=== PATIENT | female | born 1965 | race Caucasian/White ===

== ENCOUNTER 2023-05-16 17:14 | Emergency (ER) | payer SELFPAY ==
[2023-05-16] MEDS ORDERED: THIAMINE 200 MG/2 ML INJ ONE (18:00)
[2023-05-16] MEDS ORDERED: NA CHLORIDE 0.9% 1,000 ML ONE (18:00)
[2023-05-16] MEDS ORDERED: FOLIC ACID 5 MG/ML VIAL ONE (18:01)
[2023-05-16] MEDS ORDERED: MULTIVITAMINS 10 ML VIAL (INJ) IV ONE (18:03)
[2023-05-16 18:08] LABS: Absolute Lymphocytes (CBC) 0.5 K/uL (0.7-4.9); Hematocrit 43.3 % (36.0-45.0); MCV 105.4 fL (80-100); MPV 7.5 fL (7.6-11.3); Platelets 163 thou/uL (152-406)
[2023-05-16 18:15] LABS: Protime INR 1.02
[2023-05-16 18:24] LABS: Barbiturates NEGATIVE (NEGATIVE); Benzodiazepines NEGATIVE (NEGATIVE); Cocaine NEGATIVE (NEGATIVE); METHAMPHETAM NEGATIVE (NEGATIVE); Methadone NEGATIVE (NEGATIVE); Opiates NEGATIVE (NEGATIVE); Phencyclidine NEGATIVE (NEGATIVE); THC Cannibis POSITIVE (NEGATIVE)
[2023-05-16 18:26] LABS: ALT/SGPT 41 U/L (13-56); AST/SGOT 37 U/L (15-37); Alkaline Phosphatase 108 U/L (45-117); BUN Blood Urea Nitrogen 5 mg/dL (7-18); Bicarbonate 22 mEq/L (21-32); Bilirubin Direct 0.3 mg/dL (0-0.2); Bilirubin Indirect, Calculated 0.4 mg/dL (0.2-0.8); Bilirubin Total 0.7 mg/dL (0.2-1.0); Glomerular Filtration Rate 75 ml/min (=/>90); Glucose Level 130 mg/dL (74-106); Protein, Total 6.9 g/dL (6.4-8.2); Sodium Level 134 mEq/L (136-145)
[2023-05-16 18:28] LABS: Potassium 2.1 mEq/L (3.5-5.1)
--- NOTE | 2023-05-16 18:40 | RAD REPORT ---
EXAM DESCRIPTION: CT - [id number] - 05/16/2023 5:46 pm CLINICAL HISTORY: CONFUSED COMPARISON: No comparisons TECHNIQUE: Axial thin cut noncontrast CT images of the head were obtained. Axial thin cut noncontrast CT images of the cervical spine were obtained. Multiplanar reformatted images were generated and reviewed. All CT scans are performed using dose optimization technique as appropriate and may include automated exposure control or mA/KV adjustment according to patient size. FINDINGS: CT HEAD WITHOUT CONTRAST: No acute hemorrhage, hydrocephalus or extra-axial collection is identified.No areas of brain edema or midline shift. The paranasal sinuses and mastoids are clear.Left frontotemporal craniotomy is present. Encephalomala debbie along the left basal frontal region. CT CERVICAL SPINE WITHOUT CONTRAST: No fracture or subluxation.No prevertebral soft tissues swelling is identified. Mild degenerative ch anges with disc height loss at C6-7. Incidentally noted relatively hyperdense tongue base mass left of midline measuring 1.7 x 1.5 cm, wit h mucosal contour irregularity suggesting surface ulceration. IMPRESSION: No acute traumatic intracranial or cervical spine findings. Incidentally noted relatively hyperdense tongue base 1.7 cm mass, with possible overlying ulceration. This raises concern for malignancy. Consider ENT referral for additional evaluation. If additional i maging is warranted, this can be further evaluated by contrast-enhanced CT or MRI of the neck soft ti ssues. Sequelae of remote resection along the left basal frontal region.
[2023-05-16] MEDS ORDERED: KCL 20 MEQ/100 mL IVPB 100 ML IV ONE ×2 (18:53→21:59)
[2023-05-16] MEDS ORDERED: NA CHLORIDE 0.9% 500 ML ONE ×4 (18:53→23:35)
[2023-05-16] MEDS ORDERED: POTASSIUM 25 MEQ EFFERV TAB ONE (18:53)
[2023-05-16] MEDS ORDERED: ONDANSETRON 4 MG/2 ML VIAL ONE (21:12)
--- NOTE | 2023-05-16 22:49 | EDPHYS ---
Physician Documentation [facility] Name: Maxine Delgado Age: 58 yrs Sex: Female : 1965 Arrival Date: 05/16/2023 Time: 17:14 Bed 8 Private MD: ED Physician Spencer Talley HPI: 05/16 17:34 This 58 yrs old Female presents to ER via EMS with complaints of Altered Mental Status. snw 17:34 The patient presents with trouble concentrating. Patient's baseline: Neuro: alert and snw fully oriented, Motor: no deficits, Ambulation: walks without assistance. It is unknown whether or not the patient has had similar symptoms in the past. lives in [place]. Pt was found "sleeping on the floor of an apartment complex". 17:35 Onset: The symptoms/episode began/occurred acutely. Pt states she flew down yesterday snw from [place] to her Sister's here in to surprise her Mom for her birthday. Admits to ETOH abuse. States she had a seizure about 2 years ago. Takes MVI and Lisinopril 20mg po daily. Historical: - Allergies: 17:19 No Known Allergies; tm6 - PMHx: 17:19 Seizure; tm6 - Immunization history:: Adult Immunizations up to date. - Social history:: Smoking status: Patient reports the use of cigarette tobacco products, smokes one pack cigarettes per day. Patient uses alcohol, on a daily basis. ROS: 17:30 Constitutional: Negative for fever, chills, and weight loss, Eyes: Negative for injury, snw pain, redness, and discharge, ENT: Negative for injury, pain, and discharge, Neck: Negative for injury, pain, and swelling, Cardiovascular: Negative for chest pain, palpitations, and edema, Respiratory: Negative for shortness of breath, cough, wheezing, and pleuritic chest pain, Abdomen/GI: Negative for abdominal pain, nausea, vomiting, diarrhea, and constipation, Back: Negative for injury and pain, : Negative for injury, bleeding, discharge, and swelling, MS/Extremity: Negative for injury and deformity, Skin: Negative for injury, rash, and discoloration, 17:30 Neuro: Positive for altered mental status, "can't think straight", 17:30 Psych: Positive for alcohol dependence, Exam: 17:30 Head/Face: Normocephalic, atraumatic. Eyes: Pupils equal round and reactive to light, snw extra-ocular motions intact. Lids and lashes normal. Conjunctiva and sclera are non-icteric and not injected. Cornea within normal limits. Periorbital areas with no swelling, redness, or edema. ENT: Nares patent. No nasal discharge, no septal abnormalities noted. Tympanic membranes are normal and external auditory canals are clear. Oropharynx with no redness, swelling, or masses, exudates, or evidence of obstruction, uvula midline. Mucous membranes moist. Neck: Trachea midline, no thyromegaly or masses palpated, and no cervical lymphadenopathy. Supple, full range of motion without nuchal rigidity, or vertebral point tenderness. No Meningismus. Chest/axilla: Normal chest wall appearance and motion. Nontender with no deformity. No lesions are appreciated. Cardiovascular: Regular rate and rhythm with a normal S1 and S2. No gallops, murmurs, or rubs. Normal PMI, no JVD. No pulse deficits. Respiratory: Lungs have equal breath sounds bilaterally, clear to auscultation and percussion. No rales, rhonchi or wheezes noted. No increased work of breathing, no retractions or nasal flaring. Abdomen/GI: Soft, non-tender, with normal bowel sounds. No distension or tympany. No guarding or rebound. No evidence of tenderness throughout. Back: No spinal tenderness. No costovertebral tenderness. Full range of motion. 17:30 MS/ Extremity: Pulses equal, no cyanosis. Neurovascular intact. Full, normal range of motion. 17:30 Constitutional: The patient appears alert, anxious, restless, 17:30 Skin: Appearance: normal except for affected area, injury, abrasion(s), small abrasion noted, of the right arm, 17:30 Neuro: Orientation: pt agitated, gregarious, admits to ETOH, 17:30 Neuro: Mentation: lucid, Memory: is normal, Motor: is normal, Gait: not tested. seizure activity, is not displayed by the patient, 17:30 Psych: Behavior/mood is anxious, aggressive, Affect is animated, Oriented to person, place, time, Judgement / Insight is impaired. Vital Signs: 17:17 BP 148 / 93; Pulse 89; Resp 13; Temp 98.1(TE); Pulse Ox 95% on R/A; Weight 58.5 kg; tm6 Height 5 ft. 1 in. ; Pain 0/10; 17:23 BP 148 / 93; Pulse 89; Resp 13; Temp 98.1(TE); Pulse Ox 95% on R/A; tm6 18:28 BP 150 / 80; Pulse 81; Resp 17; Pulse Ox 98% on R/A; tm6 19:02 BP 148 / 80; Pulse 88; Resp 18; Pulse Ox 97% on R/A; tm6 19:30 BP 156 / 87; Pulse 92; Resp 17 S; Pulse Ox 95% on R/A; ha1 20:30 BP 146 / 92; Pulse 98; Resp 17 S; Pulse Ox 96% on R/A; ha1 21:10 BP 145 / 81; Pulse 88; Resp 17 S; Pulse Ox 96% on R/A; ha1 21:30 BP 140 / 75; Pulse 91; Resp 15 S; Pulse Ox 96% on R/A; ha1 22:20 BP 133 / 75; Pulse 76; Resp 15 S; Pulse Ox 94% on R/A; ha1 23:00 BP 122 / 68; Pulse 90; Resp 18 S; Pulse Ox 95% on R/A; ha1 17:17 Body Mass Index 24.37 (58.50 kg, 154.94 cm) tm6 17:17 Pain Scale: Adult tm6 MDM: 17:18 Patient medically screened. snw 20:29 Differential Diagnosis: electrolyte abnormality, alcohol intoxication, seizure, UTI. snw Data reviewed: vital signs, nurses notes, lab test result(s), radiologic studies, discussed mass to base of tongue and need for follow up. I considered the following discharge prescriptions or medication management in the emergency department Medications were administered in the Emergency Department. See MAR. Historians other than the Patient: EMS: [facility]. Care significantly affected by the following chronic conditions: ETOH abuse, HTN. Counseling: I had a detailed discussion with the patient and/or guardian regarding the historical points, exam findings, and any diagnostic results supporting the discharge/admit diagnosis, the presence of at least one elevated blood pressure reading (>120/80) during this emergency department visit, lab results, radiology results, the need for outpatient follow up, for definitive care, smoking cessation. Response to treatment: the patient's symptoms have mildly improved after treatment, the patient's symptoms have markedly improved after treatment. Awaiting: repeat potassium level. Special discussion: I have referred the patient to see his PCP for further evaluation of high blood pressure. Based on the history and exam findings, there is no indication for further emergent testing or inpatient evaluation. I discussed with the patient/guardian the need to see the primary care provider for further evaluation of the symptoms. 05/16 17:24 Order name: Acetaminophen; Complete Time: 18:35 snw 05/16 17:24 Order name: Basic Metabolic Panel; Complete Time: 18:35 snw 05/16 17:24 Order name: CBC with Diff; Complete Time: 18:35 snw 05/16 17:24 Order name: ETOH Level; Complete Time: 18:35 snw 05/16 17:24 Order name: Hepatic Function; Complete Time: 18:35 snw 05/16 17:24 Order name: PT-INR; Complete Time: 18:35 snw 05/16 17:24 Order name: Ptt, Activated; Complete Time: 18:35 snw 05/16 17:24 Order name: Salicylate; Complete Time: 18:35 snw 05/16 17:24 Order name: Urine Drug Screen; Complete Time: 18:35 snw 05/16 20:18 Order name: Potassium; Complete Time: 21:27 snw 05/16 17:24 Order name: CT Head C Spine; Complete Time: 18:44 snw 05/16 17:24 Order name: EKG; Complete Time: 17:25 snw 05/16 17:24 Order name: EKG - Nurse/Tech; Complete Time: 18:27 snw 05/16 17:24 Order name: IV Saline Lock; Complete Time: 17:26 snw 05/16 17:24 Order name: Labs collected and sent; Complete Time: 18:27 snw 05/16 17:24 Order name: Suicide Screening (Fulda); Complete Time: 18:27 snw 05/16 17:24 Order name: FSBS; Complete Time: 18:32 snw EC:20 Rate is 70 beats/min. Rhythm is irregular. QRS [place] is Normal. NC interval is normal. Q snw waves are Present in leads aVL, aVR, V1. Clinical impression: NSR w/ Non-specific ST/T Changes. Administered Medications: 18:27 Drug: Banana Bag - (Multivitamin IV 1 amp, NS 0.9% IV 1000 ml, Thiamine IV 100 mg, tm6 foLIC Acid IVPB 1 mg) IV at 200 ml/hr once Route: IV; Rate: 200 ml/hr; Site: right antecubital; 23:03 Follow up: Response: No adverse reaction; IV Status: Completed infusion; IV Intake: ha1 1000ml 18:27 Drug: Boostrix Tdap IM 0.5 ml IM once; as a single dose Route: IM; Site: right deltoid; tm6 20:57 Follow up: Response: No adverse reaction [facility] 18:55 Drug: Potassium PO Effervescent Tablet 50 mEq PO once; dissolve in 4 ounces of water or tm6 juice Route: PO; 20:57 Follow up: Response: No adverse reaction [facility] 19:02 Drug: Potassium Chloride IV 20 mEq IV at calculated rate once; administer over 1-2 tm6 hours Route: IV; Rate: calculated rate; Site: left forearm; 21:30 Follow up: Response: No adverse reaction; IV Status: Completed infusion; IV Intake: ha1 100ml 21:00 Drug: Ondansetron IVP 4 mg IVP once; over 2 minutes Route: IVP; Site: left forearm; ha1 21:30 Follow up: Response: No adverse reaction; Nausea is decreased 1 21:58 Drug: Potassium Chloride IV 20 mEq IV at calculated rate once; administer over 1-2 ha1 hours Route: IV; Rate: calculated rate; Site: right antecubital; 23:53 Follow up: Response: No adverse reaction; IV Status: Completed infusion; IV Intake: ha1 100ml Disposition Summary: 05/16/23 22:48 Discharge Ordered Notes: Location: Home snw Condition: Stable snw Diagnosis - Alcohol use, unspecified snw - Localized swelling, mass and lump, neck - base of tongue snw - Hypokalemia snw Followup: snw - With: Emergency Department - When: As needed - Reason: Worsening of condition Followup: snw - With: Private Physician - When: 2 - 3 days - Reason: Recheck today's complaints, Continuance of care, Re-evaluation by your physician Discharge Instructions: - Discharge Summary Sheet snw - Potassium Content of Foods snw - Alcohol Abuse and Nutrition snw - Hypokalemia snw Forms: - Medication Reconciliation Form snw - Thank You Letter snw - Antibiotic Education snw - Prescription Opioid Use snw - Patient Portal Instructions snw - Leadership Thank You Letter snw Addendum: 05/25/2023 09:35 I reviewed the patient's care provided by the Advanced Practice Provider and agree with millie king the diagnosis and treatment plan. Signatures: Dispatcher [employer] EDMN Estella Campo, NIP WRAPPER-C NIP WRAPPER-Csnw Yolis Aquino, RN RN ha1 IheonunekwuSpencer Tawney, RN RN tm6 [facility] MaryvaleAnastasiya RN [id number]
--- NOTE | 2023-05-16 22:49 | ER ---
Nurse's Notes [facility] Name: Maxine Delgado Age: 58 yrs Sex: Female : 1965 Arrival Date: 05/16/2023 Time: 17:14 Bed 8 Private MD: Diagnosis: Alcohol use, unspecified;Localized swelling, mass and lump, neck-base of tongue;Hypokalemia Presentation: 05/16 17:17 Chief complaint: EMS states: patient found face down on the ground by bystander, [facility]. tm6 Coronavirus screen: Client denies travel out of the [place] in the last 14 days. Ebola Screen: Patient negative for fever greater than or equal to 101.5 degrees Fahrenheit, and additional compatible Ebola Virus Disease symptoms Patient denies exposure to infectious person. Patient denies travel to an Ebola-affected area in the 21 days before illness onset. No symptoms or risks identified at this time. Initial Sepsis Screen: Does the patient meet any 2 criteria? No. Patient's initial sepsis screen is negative. Does the patient have a suspected source of infection? No. Patient's initial sepsis screen is negative. Risk Assessment: Do you want to hurt yourself or someone else? Patient reports no desire to harm self or others. Onset of symptoms was May 16, 2023. 17:17 Method Of Arrival: EMS: [facility] tm6 17:17 Acuity: LOU 3 tm6 Triage Assessment: 17:19 General: Appears distressed, Behavior is cooperative, anxious, crying, restless. Pain: tm6 Denies pain. EENT: No signs and/or symptoms were reported regarding the EENT system. Neuro: Level of Consciousness is awake, alert, obeys commands, Oriented to person, place, time, situation. Cardiovascular: Capillary refill < 3 seconds Patient's skin is warm and dry. Rhythm is sinus rhythm. Respiratory: Airway is patent Respiratory effort is even, unlabored, Respiratory pattern is regular, symmetrical. GI: Abdomen is flat, non-distended. : No signs and/or symptoms were reported regarding the genitourinary system. Derm: No signs and/or symptoms reported regarding the dermatologic system. Musculoskeletal: No signs and/or symptoms reported regarding the musculoskeletal system. Historical: - Allergies: 17:19 No Known Allergies; tm6 - PMHx: 17:19 Seizure; tm6 - Immunization history:: Adult Immunizations up to date. - Social history:: Smoking status: Patient reports the use of cigarette tobacco products, smokes one pack cigarettes per day. Patient uses alcohol, on a daily basis. Screenin:[address] [facility] ED Fall Risk Assessment (Adult) History of falling in the last 3 months, tm6 including since admission Yes- physiologic fall (2 pts) Confusion or Disorientation Yes (5 pts) Intoxicated or Sedated Yes (3 pts) Impaired Gait No (0 pts) Mobility Assist Device Used No (0 pt) Altered Elimination No (0 pt) Score/Fall Risk Level 3 or more points = High Risk. Abuse screen: Denies threats or abuse. Denies injuries from another. Nutritional screening: No deficits noted. Tuberculosis screening: No symptoms or risk factors identified. Assessment: 17:21 Reassessment: see triage assessment. tm6 17:23 Neuro: Oriented to forgetful. tm6 19:25 General: Appears comfortable, Behavior is calm, cooperative. Pain: Denies pain. Neuro: ha1 Level of Consciousness is awake, alert, obeys commands, Oriented to person, place, time, situation. Cardiovascular: Capillary refill < 3 seconds Patient's skin is warm and dry. Respiratory: Airway is patent Respiratory effort is even, unlabored, Respiratory pattern is regular, symmetrical. GI: No signs and/or symptoms were reported involving the gastrointestinal system. Abdomen is flat, non-distended. : No signs and/or symptoms were reported regarding the genitourinary system. Derm: Skin is pink, warm \T\ dry. Musculoskeletal: Circulation, motion, and sensation intact. Range of motion: intact in all extremities. 20:22 Reassessment: Patient and/or family updated on plan of care and expected duration. Pain ha1 level reassessed. Patient is alert, oriented x 3, equal unlabored respirations, skin warm/dry/pink. 20:55 Reassessment: wheelchair patient to bathroom. pt vomiting on the way to bathroom. ha1 notified care provider. 21:38 Reassessment: Patient and/or family updated on plan of care and expected duration. Pain ha1 level reassessed. Patient is alert, oriented x 3, equal unlabored respirations, skin warm/dry/pink. Patient states feeling better. Patient states symptoms have improved. 22:27 Reassessment: Patient and/or family updated on plan of care and expected duration. Pain ha1 level reassessed. Patient is alert, oriented x 3, equal unlabored respirations, skin warm/dry/pink. 23:00 Reassessment: discharge pending medication administration to be completed. ha1 23:54 Reassessment: Patient and/or family updated on plan of care and expected duration. Pain ha1 level reassessed. Patient is alert, oriented x 3, equal unlabored respirations, skin warm/dry/pink. Vital Signs: 17:17 BP 148 / 93; Pulse 89; Resp 13; Temp 98.1(TE); Pulse Ox 95% on R/A; Weight 58.5 kg; tm6 Height 5 ft. 1 in. ; Pain 0/10; 17:23 BP 148 / 93; Pulse 89; Resp 13; Temp 98.1(TE); Pulse Ox 95% on R/A; tm6 18:28 BP 150 / 80; Pulse 81; Resp 17; Pulse Ox 98% on R/A; tm6 19:02 BP 148 / 80; Pulse 88; Resp 18; Pulse Ox 97% on R/A; tm6 19:30 BP 156 / 87; Pulse 92; Resp 17 S; Pulse Ox 95% on R/A; ha1 20:30 BP 146 / 92; Pulse 98; Resp 17 S; Pulse Ox 96% on R/A; ha1 21:10 BP 145 / 81; Pulse 88; Resp 17 S; Pulse Ox 96% on R/A; ha1 21:30 BP 140 / 75; Pulse 91; Resp 15 S; Pulse Ox 96% on R/A; ha1 22:20 BP 133 / 75; Pulse 76; Resp 15 S; Pulse Ox 94% on R/A; ha1 23:00 BP 122 / 68; Pulse 90; Resp 18 S; Pulse Ox 95% on R/A; ha1 17:17 Body Mass Index 24.37 (58.50 kg, 154.94 cm) tm6 17:17 Pain Scale: Adult tm6 ED Course: 17:16 Patient arrived in ED. eb 17:16 Shahnaz Hastings, RN is Primary Nurse. tm6 17:17 Estella Campo FNP-C is [facility]. w 17:18 Spencer Talley is Attending Physician. snw 17:19 Triage completed. tm6 17:19 Arm band placed on right wrist. tm6 17:21 Patient has correct armband on for positive identification. Bed in low position. Call tm6 light in reach. Side rails up X2. Provided Education on: VS monitoring. Client placed on continuous cardiac and pulse oximetry monitoring. NIBP monitoring applied. working foreman on. Noise minimized. Warm blanket given. 17:47 CT Head C Spine In Process Unspecified. EDMS 18:27 No provider procedures requiring assistance completed. Inserted saline lock: 20 gauge tm6 in right antecubital area, using aseptic technique. Maintain EMS IV. Dressing intact. Site clean \T\ dry. Gauge \T\ site: 20g L wrist. 19:02 Inserted saline lock: 20 gauge in left forearm, using aseptic technique. tm6 23:10 Primary Nurse role handed off by Shahnaz Hastings RN vc1 23:55 IV discontinued, intact, bleeding controlled, No redness/swelling at site. Pressure ha1 dressing applied. Administered Medications: 18:27 Drug: Banana Bag - (Multivitamin IV 1 amp, NS 0.9% IV 1000 ml, Thiamine IV 100 mg, tm6 foLIC Acid IVPB 1 mg) IV at 200 ml/hr once Route: IV; Rate: 200 ml/hr; Site: right antecubital; 23:03 Follow up: Response: No adverse reaction; IV Status: Completed infusion; IV Intake: ha1 1000ml 18:27 Drug: Boostrix Tdap IM 0.5 ml IM once; as a single dose Route: IM; Site: right deltoid; tm6 20:57 Follow up: Response: No adverse reaction km8 18:55 Drug: Potassium PO Effervescent Tablet 50 mEq PO once; dissolve in 4 ounces of water or tm6 juice Route: PO; 20:57 Follow up: Response: No adverse reaction km8 19:02 Drug: Potassium Chloride IV 20 mEq IV at calculated rate once; administer over 1-2 tm6 hours Route: IV; Rate: calculated rate; Site: left forearm; 21:30 Follow up: Response: No adverse reaction; IV Status: Completed infusion; IV Intake: ha1 100ml 21:00 Drug: Ondansetron IVP 4 mg IVP once; over 2 minutes Route: IVP; Site: left forearm; ha1 21:30 Follow up: Response: No adverse reaction; Nausea is decreased ha1 21:58 Drug: Potassium Chloride IV 20 mEq IV at calculated rate once; administer over 1-2 ha1 hours Route: IV; Rate: calculated rate; Site: right antecubital; 23:53 Follow up: Response: No adverse reaction; IV Status: Completed infusion; IV Intake: ha1 100ml Medication: 17:21 VIS not applicable for this client. tm6 Intake: 21:30 IV: 100ml; Total: 100ml. ha1 23:03 IV: 1000ml; Total: 1100ml. ha1 23:53 IV: 100ml; Total: 1200ml. ha1 Outcome: 22:48 Discharge ordered by . snw 23:54 Discharged to home ambulatory, ha1 23:54 Condition: stable 23:54 Discharge instructions given to patient, Instructed on discharge instructions, follow up and referral plans. Demonstrated understanding of instructions, follow-up care, 23:55 Patient left the ED. ha1 Signatures: Dispatcher [employer] EDMS Estella Campo, AURIST-C AURIST-Csnw Monalisa Deluna Vanessa RN RN vc1 Yolis Aquino RN RN ha1 Anastasiya Jay RN RN km8 Shahnaz Hastings RN RN tm6
[2023-05-16 23:59] VITALS: TEMP 98.1
[2023-05-17 00:23] VITALS: BP 122/68; O2SAT 95
--- NOTE | 2023-05-19 13:51 | EKG ---
Test Date: 2023-05-16 Test Time: 18:19:21 Plastics Seasoner Operator: Carmen SI MEASUREMENT RESULTS: Intervals: Rate: 70 OK: 170 QRSD: 94 QT: 430 QTc: 464 [place]: P: 60 OK: 170 QRS: -4 T: 67 INTERPRETIVE STATEMENTS: Normal sinus rhythm with sinus arrhythmia Septal infarct, age undetermined Abnormal ECG No previous ECG available for comparison Electronically Signed On 05-19-23 13:42:12 MACHINE OPERATOR PICKER by Hunter Holguin
== END 2023-05-16 23:55 | disposition home or self-care (01) ==
LOC: ER 17:14
DX: E87.6 Hypokalemia (principal); R22.1 Localized swelling, mass and lump, neck; R22.0 Localized swelling, mass and lump, head; F10.90 Alcohol use, unspecified, uncomplicated; F17.210 Nicotine dependence, cigarettes, uncomplicated
CPT/HCPCS: 36415; 70450; 72125; 80048; 80076; 80143; 80179; 80307; 82077; 84132; 85025; 85610; 85730; 93005; 96372; 99285; J2405; J3411; J3480; J7030; J7040